=== PATIENT | male | born 1965 | race Caucasian/White ===

== ENCOUNTER → 2018-03-10 23:07 | Emergency (ER) | payer MEDICAID ==
[~2018-03-10 23:07] MED LIST: Cephalexin CAP* 500 MG PO ONE; Tetan/Diph/Pertus SYR(Tdap)* 0.5 ML SYR(BOOSTRIX) use SYR IM ONE; oxyCODONE/Acetamin 5/325 MG* TAB PO ONE
[2018-03-10 23:17] VITALS: BP 141/96
--- NOTE | 2018-03-10 23:47 | ED ---
Laceration/Wound HPI - HPI Summary HPI Summary: This patient is a 52 year old M presenting to [facility] with a chief complaint of a puncture to his left hand 3 hours ago. He was cutting an RJ45 wire with scissors when his scissors slipped and punctured the palm of his left hand. He does not know when he received his last tetanus shot. He wanted to make sure it was not infected before he goes to [place] tomorrow. He rates the pain 3/10 in severity. - History of Current Complaint Stated Complaint: HAND LAC Time Seen by Provider: 03/10/18 23:26 Hx Obtained From: Patient Mechanism of Injury: Sharp/Blunt Trauma Onset Severity: Mild Current Severity: Mild Pain Intensity: 3 - Allergy/Home Medications Allergies/Adverse Reactions: Allergies Allergy/AdvReac Type Severity Reaction Status Date / Time No Known Allergies Allergy Verified 03/10/18 23:17 PMH/Surg Hx/FS Hx/Imm Hx Endocrine/Hematology History: Denies: Hx Diabetes Cardiovascular History: Denies: Hx Coronary Artery Disease Infectious Disease History: No Infectious Disease History: Denies: Traveled Outside the [place] in Last 30 Days - Family History Known Family History: Negative: Cardiac Disease, Hypertension, Diabetes Review of Systems Negative: Fever Positive: Other - laceration, left palm All Other Systems Reviewed And Are Negative: Yes Physical Exam - Summary Physical Exam Summary: VITAL SIGNS: Reviewed. GENERAL: Patient is a well-developed and nourished MALE who is lying comfortable in the stretcher. Patient is not in any acute respiratory distress. HEAD AND FACE: No signs of trauma. No ecchymosis, hematomas or skull depressions. No sinus tenderness. EYES: PERRLA, EOMI x 2, No injected conjunctiva, no nystagmus. EARS: Hearing grossly intact. Ear canals and tympanic membranes are within normal limits. MOUTH: Oropharynx within normal limits. NECK: Supple, trachea is midline, no adenopathy, no JVD, no carotid bruit, no c- spine tenderness, neck with full ROM. CHEST: Symmetric, no tenderness at palpation LUNGS: Clear to auscultation bilaterally. No wheezing or crackles. CVS: Regular rate and rhythm, S1 and S2 present, no murmurs or gallops appreciated. ABDOMEN: Soft, non-tender. No signs of distention. No rebound no guarding, and no masses palpated. Bowel sounds are normal. EXTREMITIES: FROM in all major joints, no edema, no cyanosis or clubbing. 0.5 cm puncture wound over the thenar eminence of the left hand. NEURO: Alert and oriented x 3. No acute neurological deficits. Speech is normal and follows commands. SKIN: Dry and warm Triage Information Reviewed: Yes Vital Signs On Initial Exam: Initial Vitals Temp Pulse Resp BP Pulse Ox 99.1 F 106 16 141/96 98 03/10/18 23:10 03/10/18 23:10 03/10/18 23:10 03/10/18 23:10 03/10/18 23:10 Vital Signs Reviewed: Yes Diagnostics - Vital Signs Vital Signs Temp Pulse Resp BP Pulse Ox 03/10/18 23:10 99.1 F 106 16 141/96 98 - Laboratory Lab Statement: Any lab studies that have been ordered have been reviewed, and results considered in the medical decision making process. Laceration Repair Course/Dx - Course Course Of Treatment: This patient is a 52 year old M presenting to [facility] with a chief complaint of a puncture to his left hand 3 hours ago. The wound will be cleaned and he will receive a tetanus booster. He will then be discharged with instructions to return with any new or worsening symptoms. This plan was discussed with the patient and he was agreeable with this plan. - Clinical Impression Provider Diagnoses: Puncture wound of left palm Discharge - Sign-Out/Discharge Documenting (check all that apply): Patient Departure - Discharge - Discharge Plan Condition: Stable Disposition: HOME Prescriptions: Cephalexin CAP* [Keflex CAP*] 500 mg PO QID #30 cap Patient Education Materials: Puncture Wound (ED) Referrals: No Primary Care Phys,NOPCP [Primary Care Provider] - Additional Instructions: Return to ED with any new or worsening symptoms. - Attestation Statements Document Initiated by Scribe: Yes Documenting Scribe: Jc Devlin Provider For Whom Scribe is Documenting (Include Credential): Diana Fabian MD Scribe Attestation: Jc Braun scribed for Diana Fabian MD on 03/11/18 at 0007. Status of Scribe Document: Ready
== END | disposition home or self-care (01) ==
LOC: ED 23:07
DX: S61.432A Puncture wound without foreign body of left hand, initial encounter (principal); W27.2XXA Contact with scissors, initial encounter; Y92.9 Unspecified place or not applicable
CPT/HCPCS: 90471; 90715; 99282; A9270-GY